=== PATIENT | male | born 1995 | race Two or more races ===

== ENCOUNTER 2022-05-26 15:37 | Emergency (ER) | payer BC, MEDICAID ==
[~2022-05-26] VITALS: Ht 172.7 cm; Wt 86.2 kg
[2022-05-26] MEDS ORDERED: IV NORMAL SALINE 500 ML BAG IV ONE (16:00)
[2022-05-26 16:26] LABS: HEMATOCRIT 41.7 % (36.7-47.1); MEAN CORPUSCULAR HEMOGLOBIN 29.2 uug (23.8-33.4); MEAN CORPUSCULAR VOLUME 87.2 fL (73.0-96.2); PLATELET COUNT (AUTO) 273 K/uL (152-348)
[2022-05-26 16:33] LABS: POTASSIUM 4.4 mmol/L (3.5-5.1)
[2022-05-26 16:39] LABS: BILIRUBIN,DIRECT 0.1 mg/dL (0.0-0.2); BILIRUBIN,TOTAL 0.5 mg/dL (0.2-1.0); TOTAL PROTEIN, SERUM 6.7 g/dL (6.4-8.2)
[2022-05-26 17:15] LABS: *BILIRUBIN,URIN NEGATIVE (NEGATIVE); *BLOOD, URINE NEGATIVE (NEGATIVE); *CLARITY,URINE CLEAR (CLEAR); *COLOR,URINE YELLOW (YELLOW); *KETONES,URINE NEGATIVE (NEGATIVE); *UROBILINOGEN,URINE 0.2 E.U./dl (NORMAL); LEUKOCYTE ESTERASE ,URINE NEGATIVE (NEGATIVE); NITRITE, URINE NEGATIVE (NEGATIVE); UGLUCOSE NEGATIVE (NEGATIVE)
[2022-05-26] MEDS ORDERED: DOCU-141 PO (18:09)
[2022-05-26] MEDS ORDERED: DICY10CA13 PO (18:09)
[2022-05-26] MEDS ORDERED: AMOX-430 PO (18:09)
--- NOTE | 2022-05-26 18:37 | NUR ---
Removed IV intact, site okay, bandaged. Gave pt RX and d/c instructions, verbalized understanding.
[2022-05-26 18:40] VITALS: BP 119/71
== END 2022-05-26 18:43 | disposition home or self-care (01) ==
LOC: ER 15:53
DX: K52.9 Noninfective gastroenteritis and colitis, unspecified (principal); R10.32 Left lower quadrant pain
CPT/HCPCS: 99284; 74176; 96360; 96361; 80076; 80048; 81003; 83690; 85025; 36415; 87040; J7040; A4663

== ENCOUNTER 2023-08-24 13:02 | Emergency (ER) | payer BC ==
[~2023-08-24] VITALS: Ht 172.7 cm; Wt 99.8 kg
[~2023-08-24 13:02] MED LIST: AMOX-430 PO; DICY10CA13 PO; DOCU-141 PO
[2023-08-24 13:06] VITALS: O2SAT 97
[2023-08-24] MEDS ORDERED: ACET1TAB23 PO ×2 (14:32→14:34)
== END 2023-08-24 14:48 | disposition home or self-care (01) ==
LOC: ER 13:04
DX: B30.9 Viral conjunctivitis, unspecified (principal); Z79.899 Other long term (current) drug therapy
CPT/HCPCS: A4606; A4663